=== PATIENT | female | born 1985 | race African-American/Black ===

== ENCOUNTER 2016-12-09 20:17 | Emergency (ER) | payer SELFPAY | END 2016-12-09 20:48 | disposition left against medical advice (07) | LOC: ER 20:17 | DX: Z53.21 Procedure and treatment not carried out due to patient leaving prior to being seen by health care provider (principal) ==

== ENCOUNTER 2017-01-02 11:03 | Emergency (ER) | payer SELFPAY ==
[2017-01-02] MEDS ORDERED: PHENAZOPYRIDINE HCL 200 MG TABLET PO ONE (12:08)
--- NOTE | 2017-01-02 12:08 | ER Document Report ---
ED GI/ - General Mode of Arrival: Ambulatory Information source: Patient TRAVEL OUTSIDE OF THE [place] IN LAST 30 DAYS: No - HPI Patient complains to provider of: Abdominal pain, Dysuria, Vaginal discharge, Other - dysuria Onset: This morning Location: Suprapubic Associated symptoms: Other - see above - General Chief Complaint: Pain With Urination Stated Complaint: ABDOMINAL PAIN,FREQUENT URINATION Time Seen by Provider: 01/02/17 12:03 Notes: 31 year old female with history of asthma presents to the ED complaining of urinary frequency, suprapubic abdominal pain, and dysuria that started today. Patient denies fever, nausea, and vomiting. Patient states that she has chronic vaginal discharge, but no change in it recently. Patient has taken Motrin and Tylenol for pain. (RADHA MORALES) - Related Data Allergies/Adverse Reactions: No Known Allergies Allergy (Verified 01/02/17 11:07) Home Medications: Current Home Medications Albuterol Sulfate [Proair HFA] 1 - 2 puff IH Q4 PRN 01/02/17 [History] Dextroamphetamine/Amphetamine [Adderall XR 20 mg Capsule] 1 cap.sr PO DAILY 03/09 [History] Paliperidone [Invega 3 Mg Tab.Er] 3 mg PO DAILY 01/02/17 [History] Past Medical History - General Information source: Patient - Social History Smoking Status: Current Every Day Smoker Chew tobacco use (# tins/day): No Frequency of alcohol use: Social Drug Abuse: None Family History: Reviewed & Not Pertinent Patient has suicidal ideation: No - Past Medical History Cardiac Medical History: Denies: Hx Coronary Artery Disease, Hx Heart Attack, Hx Hypertension Pulmonary Medical History: Reports: Hx Asthma Denies: Hx Bronchitis, Hx COPD, Hx Pneumonia Neurological Medical History: Denies: Hx Cerebrovascular Accident, Hx Seizures Renal/ Medical History: Denies: Hx Peritoneal Dialysis Musculoskeltal Medical History: Denies Hx Arthritis Past Surgical History: Reports: Hx Tubal Ligation. Denies: Hx Pacemaker - Immunizations Hx Diphtheria, Pertussis, Tetanus Vaccination: Yes Hx Pneumococcal Vaccination: 01/08/12 Review of Systems - Review of Systems Constitutional: No symptoms reported. denies: Fever EENT: No symptoms reported Cardiovascular: No symptoms reported Respiratory: No symptoms reported Gastrointestinal: See HPI, Abdominal pain - suprapubic. denies: Nausea, Vomiting Genitourinary: See HPI, Dysuria, Frequency Female Genitourinary: See HPI, Vaginal discharge Musculoskeletal: No symptoms reported Skin: No symptoms reported Hematologic/Lymphatic: No symptoms reported Neurological/Psychological: No symptoms reported -: Yes All other systems reviewed and negative Physical Exam - General General appearance: Alert, Other - appears uncomfortable In distress: None - HEENT Head: Normocephalic, Atraumatic Eyes: Normal Extraocular movements intact: Yes Pupils: PERRL - Respiratory Respiratory status: No respiratory distress Breath sounds: Rhonchi - Rhonchi which clears with cough to the right lung. No : Wheezing - Cardiovascular Rhythm: Regular Heart sounds: Normal auscultation - Abdominal Inspection: Normal Distension: No distension Tenderness: Nontender - Extremities General upper extremity: Normal inspection, Normal ROM General lower extremity: Normal inspection, Normal ROM - Neurological Neuro grossly intact: Yes Cognition: Normal Orientation: AAOx4 Cord Coma Scale Eye Opening: Spontaneous Cord Coma Scale Verbal: Oriented Cord Coma Scale Motor: Obeys Commands Gene Coma Scale Total: 15 Speech: Normal - Psychological Associated symptoms: Normal affect, Normal mood - Skin Skin Temperature: Warm Skin Moisture: Dry Skin Color: Normal - Vital signs Vitals: Temp Pulse Resp BP Pulse Ox 98.4 F 80 16 140/89 H 98 01/02/17 11:07 01/02/17 11:07 01/02/17 11:07 01/02/17 11:07 01/02/17 11:07 Course - Re-evaluation Re-evalutation: 01/02/17 13:04 Urinalysis shows UTI with hematuria, no fevers, treat with Keflex and Pyridium, discharged home. (MARLEEN HERNANDEZ) - Vital Signs Vital signs: Temp Pulse Resp BP Pulse Ox 98 F 72 16 138/86 H 100 01/02/17 13:10 01/02/17 13:10 01/02/17 13:10 01/02/17 13:10 01/02/17 13:10 - Laboratory Laboratory results interpreted by me: 01/02/17 11:10 Urine Protein >=500 H Urine Ketones TRACE H Urine Blood SMALL H Urine Urobilinogen 2.0 H Ur Leukocyte Esterase LARGE H Discharge - Discharge Clinical Impression: UTI (urinary tract infection) Qualifiers: Urinary tract infection type: acute cystitis Hematuria presence: with hematuria Qualified Code(s): N30.01 - Acute cystitis with hematuria Hypertension Qualifiers: Hypertension type: essential hypertension Qualified Code(s): I10 - Essential ( primary) hypertension Condition: Stable Disposition: HOME, SELF-CARE Instructions: Urinary Tract Infection ([facility]) Additional Instructions: You should start having relief of your pain within the next 2 hours from the Pyridium, you may take Azo as directed [id number] on the box. Feel free to get the generic version if it is cheaper. Please take the Keflex as directed until it is gone. You are not . Return to the emergency department for new or concerning symptoms or if your symptoms do not improve within the next 24 hours. Prescriptions: Cephalexin Monohydrate [Keflex 500 mg Capsule] 500 mg PO Q6H #20 capsule Forms: Return to Work Scribe Attestation: 01/02/17 14:52 I personally performed the services described in the documentation, reviewed and edited the documentation which was dictated to the scribe in my presence, and it accurately records my words and actions. (MARLEEN HERNANDEZ) Scribe Documentation - Scribe Written by Jackeline:: Andreea Avendano, 01/02/2017 1411 acting as scribe for :: Nisa
[2017-01-02 12:28] LABS: APPEARANCE,URINE CLOUDY; BILIRUBIN,URINE NEGATIVE (NEGATIVE); GLUCOSE, URINE NEGATIVE (NEGATIVE); KETONES,URINE TRACE mg/dL (NEGATIVE); LEUKOCYTE ESTERASE,URINE LARGE (NEGATIVE); NITRITE,URINE NEGATIVE (NEGATIVE); PROTEIN,URINE >=500 mg/dL (NEGATIVE); URINE SPECIFIC GRAVITY 1.035
[2017-01-02] MEDS ORDERED: CEPHALEXIN 500 MG CAPSULE PO ONE (12:51)
[2017-01-02 13:14] VITALS: BP 138/86
== END 2017-01-02 13:10 | disposition home or self-care (01) ==
LOC: ER 11:03
DX: N30.01 Acute cystitis with hematuria (principal); I10 Essential (primary) hypertension; N89.8 Other specified noninflammatory disorders of vagina; R35.0 Frequency of micturition; R10.30 Lower abdominal pain, unspecified; F17.200 Nicotine dependence, unspecified, uncomplicated; J45.909 Unspecified asthma, uncomplicated; Z98.51 Tubal ligation status
CPT/HCPCS: 99284; 87086; 81025; 81001; J3490

== ENCOUNTER 2017-01-10 11:28 | Emergency (ER) | payer SELFPAY ==
--- NOTE | 2017-01-10 11:39 | ER Document Report ---
HPI - HPI Onset: Other - early december Onset/Duration: Persistent Pain Level: 3 Context: 31-year-old female complaining of dysuria and suprapubic discomfort since early December. She was treated in the emergency department for urinary tract infection with cephalexin which did not help she had 5 days of Macrobid at home which did not relieve the symptoms either. She had intercourse 1 month ago that was nonpainful and no condom. She is a history of bacterial vaginosis only but it usually does not cause pelvic discomfort, she had gonorrhea and Chlamydia treated 9 years ago. No fever. Lateral tubal ligation 2011. Associated Symptoms: None Exacerbated by: Denies Relieved by: Denies Similar symptoms previously: No Recently seen / treated by doctor: No - ROS ROS below otherwise negative: Yes Systems Reviewed and Negative: Yes All other systems reviewed and negative - REPRODUCTIVE Reproductive: DENIES: : - DERM Skin Color: Normal, [place] Past Medical History - General Information source: Patient - Social History Smoking Status: Current Every Day Smoker Frequency of alcohol use: None Drug Abuse: None Lives with: Family Family History: Reviewed & Not Pertinent Patient has suicidal ideation: No Patient has homicidal ideation: No Pulmonary Medical History: Reports: Hx Asthma Renal/ Medical History: Denies: Hx Peritoneal Dialysis Past Surgical History: Reports: Hx Tubal Ligation - Immunizations Hx Diphtheria, Pertussis, Tetanus Vaccination: Yes Hx Pneumococcal Vaccination: 01/08/12 Vertical Provider Document - CONSTITUTIONAL Agree With Documented VS: Yes Exam Limitations: No Limitations General Appearance: No Apparent Distress - INFECTION CONTROL TRAVEL OUTSIDE OF THE [place] IN LAST 30 DAYS: No - HEENT HEENT: Normocephalic - NECK Neck: Supple - RESPIRATORY Respiratory: Breath Sounds Normal, No Respiratory Distress O2 Sat by Pulse Oximetry: 98 - CARDIOVASCULAR Cardiovascular: Regular Rate, Regular Rhythm - GI/ABDOMEN Gastrointestinal: Abdomen Soft, Abdomen Non-Tender, No Organomegaly - REPRODUCTIVE Female Genitalia: Normal Inspection. negative: CMT, Adnexal Pain-Right, Adnexal Pain-Left Notes: urethra normal, old blood menses in vault - BACK Back: Normal Inspection. negative: CVA Tenderness-Right, CVA Tenderness-Left - MUSCULOSKELETAL/EXTREMETIES Musculoskeletal/Extremeties: MAEW, FROM - NEURO Level of Consciousness: Awake, Alert - DERM Integumentary: Warm, Dry, No Rash Course - Re-evaluation Re-evalutation: 01/10/17 16:46 Wet prep was neagative. Pt chose to tx for possible gc or chlamydia prior to leaving the ER, referral to obgyn. gc and chlamydia are negative, will call in [facility] [phone], will call in more macrobid 1 po bid #14 (which pt refers to the Keflex) , pyridium 200mg tid #20 , no refill. pending the new urine culture, pt has the urethral pain, on physical exam the urethra was not inflamed or prolapsed - Vital Signs Vital signs: Temp Pulse Resp BP Pulse Ox 98.5 F 86 20 125/78 98 01/10/17 11:30 01/10/17 11:30 01/10/17 11:30 01/10/17 11:30 01/10/17 11:30 Discharge - Discharge Clinical Impression: dental asbcess, pelvic pain Condition: Good Disposition: HOME, SELF-CARE Instructions: Anti-Inflammatory Medication ([facility]), Azithromycin ([facility]), Dentist, Dental Infection or Abscess ([facility]), Pelvic Pain ([facility]), Penicillin V K ([facility]), Rocephin ([facility]) Additional Instructions: see the dentist call me in 2 hours for the std culture results [phone] see obgyn doctor for persistant pelvic pain Please complete the patient satisfaction survey if you get one, and return it.. If you do not receive a survey, then you can go to the [facility] website, [email or web address] and place your comments about your very good care. Thank you very much. It was a pleasure being your medical provider today. Prescriptions: Ibuprofen [Motrin 800 mg Tablet] 800 mg PO Q8HP PRN #30 tab PRN Reason: Penicillin V Potassium [Penicillin Vk 500 mg Tablet] 500 mg PO QID #40 tablet Forms: Return to Work Referrals: TERESA JIANG MD [EMERITUS] - Follow up as needed WILLI PENA MD [ACTIVE STAFF] - Follow up as needed
[2017-01-10] MEDS ORDERED: PENICILLIN V POTASSIUM 500 MG TABLET PO ONE (11:53)
[2017-01-10 12:11] LABS: APPEARANCE,URINE SLIGHTLY-CLOUDY; BILIRUBIN,URINE NEGATIVE (NEGATIVE); GLUCOSE, URINE NEGATIVE (NEGATIVE); KETONES,URINE NEGATIVE (NEGATIVE); LEUKOCYTE ESTERASE,URINE MODERATE (NEGATIVE); NITRITE,URINE NEGATIVE (NEGATIVE); PROTEIN,URINE 30 mg/dL (NEGATIVE); URINE SPECIFIC GRAVITY 1.026; UROBILINOGEN,URINE NEGATIVE mg/dL (<2.0)
[2017-01-10] MEDS ORDERED: CEFTRIAXONE INJ 250 MG VIAL IM ONE (13:22)
[2017-01-10] MEDS ORDERED: LIDOCAINE 1% INJ-PF (10 MG/ML) 30 ML SDV INFIL ONE (13:24)
[2017-01-10] MEDS ORDERED: AZITHROMYCIN 250 MG TABLET PO ONE (13:24)
[2017-01-10 13:38] LABS: CHLAM PCR NOT DETECTED (NOT DETECT)
[2017-01-10 13:46] VITALS: BP 124/76
== END 2017-01-10 13:46 | disposition home or self-care (01) ==
LOC: ER 11:28
DX: K04.7 Periapical abscess without sinus (principal); R10.2 Pelvic and perineal pain; R30.0 Dysuria; F17.200 Nicotine dependence, unspecified, uncomplicated; Z98.51 Tubal ligation status
CPT/HCPCS: 99283; 96372; 87086; 87210; 81025; 81001; 87491; 87591; J3490; J0696

== ENCOUNTER 2018-05-25 15:58 | Emergency (ER) | payer SELFPAY ==
--- NOTE | 2018-05-25 17:14 | ER Document Report ---
ED General - General Chief Complaint: Pelvic Pain Stated Complaint: PELVIC PAIN Time Seen by Provider: 05/25/18 17:10 Primary Care Provider: [facility] [Provider Group] - Follow up in 3-5 days Mode of Arrival: Ambulatory Information source: Patient Notes: 32-year-old female with asthma presents with complaint of 1 week of pelvic and low back pain. She describes the pain is intermittent, cramping and sharp. She also states that she has had 1 day of greenish vaginal discharge. Her last menstrual period was May 13, 2018 and states she is not concerned for as she has had a tubal ligation. Patient is sexually active with one partner but does not use detection. She does not have any suspicion that she has been exposed to an STD. She has had prior similar symptoms and was diagnosed with a urinary tract infection. TRAVEL OUTSIDE OF THE [place] IN LAST 30 DAYS: No - HPI Onset: Last week Onset/Duration: Intermittent Quality of pain: Cramping, Sharp Severity: Mild Pain Level: 1 Associated symptoms: denies: Chest pain, Diarrhea, Fever, Headache, Nausea, Vomiting, Shortness of breath, Sweating Exacerbated by: Denies Relieved by: Denies Similar symptoms previously: No Recently seen / treated by doctor: No - Related Data Allergies/Adverse Reactions: No Known Allergies Allergy (Verified 01/10/17 12:04) Past Medical History - General Information source: Patient, [facility] Records - Social History Smoking Status: Never Smoker Frequency of alcohol use: None Drug Abuse: None Lives with: Spouse/Significant other Family History: Reviewed & Not Pertinent - Past Medical History Cardiac Medical History: Denies: Hx Coronary Artery Disease, Hx Heart Attack, Hx Hypertension Pulmonary Medical History: Reports: Hx Asthma Denies: Hx Bronchitis, Hx COPD, Hx Pneumonia Neurological Medical History: Denies: Hx Cerebrovascular Accident, Hx Seizures Renal/ Medical History: Denies: Hx Peritoneal Dialysis Musculoskeletal Medical History: Denies Hx Arthritis Past Surgical History: Reports: Hx Tubal Ligation. Denies: Hx Pacemaker - Immunizations Hx Diphtheria, Pertussis, Tetanus Vaccination: Yes Hx Pneumococcal Vaccination: 01/08/12 Review of Systems - Review of Systems Notes: REVIEW OF SYSTEMS: CONSTITUTIONAL : Denies fever, chills, or sweats. Denies recent illness. Denies weight loss, recent hospitalizations. EENT: Denies visual changes, eye pain. Denies sore throat, oral lesions, difficulty swallowing. CARDIOVASCULAR: Denies chest pain. Denies palpitations. Denies lower extremity edema. RESPIRATORY: Denies cough. Denies shortness of breath, wheezing. GASTROINTESTINAL: Denies abdominal distention. Denies nausea, vomiting, or diarrhea. Denies blood in vomitus, stools, or per rectum. Denies black, tarry stools. Denies constipation. GENITOURINARY: Denies difficulty urinating, painful urination, frequency, blood in urine, MUSCULOSKELETAL: Denies back or neck pain or stiffness. Denies joint pain or swelling. SKIN: Denies rash, lesions or sores. HEMATOLOGIC : Denies easy bruising or bleeding. LYMPHATIC: Denies swollen glands. NEUROLOGICAL: Denies confusion or altered mental status. Denies loss of consciousness. Denies dizziness or lightheadedness. Denies headache. Denies weakness or paralysis. Denies problems difficulty with ambulation, slurred speech. Denies sensory loss, numbness, or tingling. Denies seizures. PSYCHIATRIC: Denies anxiety or stress. Denies depression, suicidal ideation, or homicidal ideation. Denies visual or auditory hallucinations. Physical Exam - Vital signs Vitals: Temp Pulse Resp BP Pulse Ox 98.8 F 85 16 132/87 H 97 05/25/18 16:17 05/25/18 16:17 05/25/18 16:17 05/25/18 16:17 05/25/18 16:17 - Notes Notes: PHYSICAL EXAMINATION: GENERAL: Well-appearing, well-nourished and in no acute distress. HEAD: Atraumatic, normocephalic. EYES: Pupils equal round and reactive to light, extraocular movements intact, conjunctiva are normal. ENT: Nares patent, oropharynx clear without exudates. Moist mucous membranes. NECK: Normal range of motion, supple without lymphadenopathy LUNGS: Breath sounds clear to auscultation bilaterally and equal. No wheezes rales or rhonchi. HEART: Regular rate and rhythm without murmurs ABDOMEN: Soft, nontender, nondistended abdomen. No guarding, no rebound. No masses appreciated. Female : Pelvic exam; External genitalia unremarkable. Speculum exam with yellow-green discharge. Vaginal wall unremarkable. Os closed. No cervical motion tenderness. No adnexal tenderness or masses appreciated. Swabs obtained for gonorrhea, chlamydia and wet prep. Musculoskeletal: Normal range of motion, no pitting or edema. No cyanosis. NEUROLOGICAL: Cranial nerves grossly intact. Normal speech, normal gait. Normal sensory, motor exams PSYCH: Normal mood, normal affect. SKIN: Warm, Dry, normal turgor, no rashes or lesions noted. Course - Re-evaluation Re-evalutation: 05/25/18 18:51 Laboratory 05/25/18 05/25/18 17:16 17:52 Urine Color YELLOW Urine Appearance CLEAR Urine pH 6.0 Ur Specific [place] 1.019 Urine Protein NEGATIVE Urine Glucose (UA) NEGATIVE Urine Ketones NEGATIVE Urine Blood NEGATIVE Urine Nitrite NEGATIVE Urine Bilirubin NEGATIVE Urine Urobilinogen NEGATIVE Ur Leukocyte Esterase NEGATIVE Urine WBC (Auto) 1 Urine RBC (Auto) 2 Squamous Epi Cells Auto <1 Urine Mucus (Auto) RARE Urine Ascorbic Acid NEGATIVE Epi Cells (Wet Prep) 3+ EPITHELIALS SEEN Trichomonas (Wet Prep) NO TRICHOMONAS SEEN Vaginal WBC 2+ WBCS SEEN Vaginal RBC NO RBCS SEEN Vaginal Yeast NO YEAST SEEN Temp Pulse Resp BP Pulse Ox 98.8 F 85 16 132/87 H 97 05/25/18 16:17 05/25/18 16:17 05/25/18 16:17 05/25/18 16:17 05/25/18 16:17 32-year-old female with asthma presents with complaint of 1 week of pelvic and low back pain. She describes the pain is intermittent, cramping and sharp. She also states that she has had 1 day of greenish vaginal discharge. Her last menstrual period was May 13, 2018 and states she is not concerned for as she has had a tubal ligation. Patient is sexually active with one partner but does not use detection. She does not have any suspicion that she has been exposed to an STD. She has had prior similar symptoms and was diagnosed with a urinary tract infection. No evidence of urinary tract infection, bacterial vaginosis, trichomonas, yeast infection on patient's wet prep and urinalysis. Patient did have a yellow greenish discharge on exam and has opted for prophylactic treatment of gonorrhea and chlamydia. Patient was evaluated and treated as appropriate for the patient's presenting symptoms and complaint, with consideration of any critical or life threatening conditions that may be associated with their obtained history and exam as noted above. All results were discussed with patient and... Patient provided the opportunity to ask questions, and express concerns. Patient was educated on treatments based on their presumed diagnosis as noted above. At this time we will discharge the patient with return precautions and follow-up recommendations. Verbal discharge instructions given a the bedside. Medication warnings reviewed. Patient is in agreement with this plan and has verbalized understanding of return precautions. After careful consideration I feel that that patient can be safely discharged from the emergency department, they were advised to followup with a primary care physician in 2-3 days. Dictation on this chart was performed using voice recognition software and may result in unintended grammatical, spelling, syntax or errors. 05/25/18 19:02 05/26/18 01:14 - Vital Signs Vital signs: Temp Pulse Resp BP Pulse Ox 98.8 F 85 16 132/87 H 97 05/25/18 16:17 05/25/18 16:17 05/25/18 16:17 05/25/18 16:17 05/25/18 16:17 Discharge - Discharge Clinical Impression: Pelvic pain, Vaginal discharge, Elevated blood pressure reading Condition: Good Disposition: HOME, SELF-CARE Instructions: Azithromycin ([facility]), Cephalosporins ([facility]), Pelvic Pain ([facility]) Additional Instructions: Follow up with your [id number] hours for further care or return to the ED IMMEDIATELY if symptoms worsen or you have any concerns. If you cannot afford to follow up with your primary care physician a list of low cost clinics have been provided at the end of your discharge papers as well. Most prescribed medications have multiple side effects. The safest thing to do is when filling your prescription speak to your pharmacist regarding possible interactions with your normal home medications and over the counter medications such as Ibuprofen, Tylenol, Benadryl. If you experience any symptoms that cause you discomfort or concern you should discontinue the medication immediately and return to the emergency room or call your primary care physician. Forms: Elevated Blood Pressure Referrals: [facility] [Provider Group] - Follow up in 3-5 days
[2018-05-25 18:18] LABS: EPITHELIALS (WET MOUNT) 3+ EPITHELIALS SEEN; RBCS (WET MOUNT) NO RBCS SEEN; T.VAGINALIS (WET MOUNT) NO TRICHOMONAS SEEN; WBCS (WET MOUNT) 2+ WBCS SEEN; YEAST (WET MOUNT) NO YEAST SEEN
[2018-05-25 18:25] LABS: APPEARANCE,URINE CLEAR; BILIRUBIN,URINE NEGATIVE (NEGATIVE); COLOR,URINE YELLOW; GLUCOSE, URINE NEGATIVE (NEGATIVE); KETONES,URINE NEGATIVE (NEGATIVE); LEUKOCYTE ESTERASE,URINE NEGATIVE (NEGATIVE); NITRITE,URINE NEGATIVE (NEGATIVE); PROTEIN,URINE NEGATIVE (NEGATIVE); URINE SPECIFIC GRAVITY 1.019; UROBILINOGEN,URINE NEGATIVE mg/dL (<2.0)
[2018-05-25] MEDS ORDERED: NAPROXEN 250 MG TABLET PO ONE (18:47)
[2018-05-25] MEDS ORDERED: CEFTRIAXONE INJ 250 MG VIAL IM ONE (18:52)
[2018-05-25] MEDS ORDERED: ONDANSETRON 4 MG TAB.RAPDIS PO ONE (18:52)
[2018-05-25] MEDS ORDERED: AZITHROMYCIN 1 GM SUSP PACKET PO ONE (18:52)
[2018-05-25 19:45] LABS: CHLAM PCR NOT DETECTED (NOT DETECT); GON PCR NOT DETECTED (NOT DETECT)
[2018-05-26 06:56] VITALS: BP 128/100
== END 2018-05-25 20:10 | disposition home or self-care (01) ==
LOC: ER 15:58
DX: R10.2 Pelvic and perineal pain (principal); N89.8 Other specified noninflammatory disorders of vagina; R03.0 Elevated blood-pressure reading, without diagnosis of hypertension; M54.5 Low back pain; J45.909 Unspecified asthma, uncomplicated
CPT/HCPCS: 99284; 96372; 87210; 81025; 81001; 87491; 87591; S0119; Q0144; J0696; 36415

== ENCOUNTER 2019-03-20 04:47 | Emergency (ER) | payer SELFPAY ==
[2019-03-20 06:10] LABS: A TYPE INFLUENZA AG NEGATIVE (NEGATIVE); B INFLUENZA AG NEGATIVE (NEGATIVE)
--- NOTE | 2019-03-20 06:15 | RADIOLOGY REPORT (SQ) ---
EXAM DESCRIPTION: XR CHEST 2 VIEWS COMPLETED DATE/TME: 03/20/2019 00:00 CLINICAL HISTORY: 33 years, Female, COUGH Comparison: None FINDINGS: No focal lung consolidation. No pleural effusion. No pneumothorax. Cardiac and mediastinal silhouette is unremarkable. No acute osseous abnormality. Soft tissues are unremarkable. IMPRESSION: No acute findings. No focal lung consolidation.
[2019-03-20] MEDS ORDERED: PREDNISONE 20 MG TABLET PO ONE (09:01)
[2019-03-20] MEDS ORDERED: IPRATROPIUM/ALBUTEROL 0.5-2.5 MG/3 ML AMPUL NEB ONE (09:01)
--- NOTE | 2019-03-20 09:07 | ER Document Report ---
HPI - HPI Patient complains to provider of: Cough Time Seen by Provider: 03/20/19 08:54 Onset: Last week Onset/Duration: Persistent Pain Level: 3 Context: 33-year-old female with history of asthma and smoker presents emergency department with complaints of cough for the past week. Reports diarrhea earlier in the past week. None now. Denies fever and vomiting. Reports she has taken multiple [id number] medications without relief of symptoms. She also reports she used her inhaler which did not help. Associated Symptoms: Diarrhea Exacerbated by: Denies Relieved by: Denies Similar symptoms previously: No Recently seen / treated by doctor: No - EENT EENT: REPORTS: Sore Throat - RESPIRATORY Respiratory: REPORTS: Coughing - REPRODUCTIVE Reproductive: DENIES: : Past Medical History - General Information source: Patient Last Menstrual Period: Last month denies - Social History Smoking Status: Current Every Day Smoker Cigarette use (# per day): Yes Frequency of alcohol use: Social Drug Abuse: None Lives with: Family Family History: Reviewed & Not Pertinent Patient has suicidal ideation: No Patient has homicidal ideation: No - Past Medical History Cardiac Medical History: Denies: Hx Coronary Artery Disease, Hx Heart Attack, Hx Hypertension Pulmonary Medical History: Reports: Hx Asthma Denies: Hx Bronchitis, Hx COPD, Hx Pneumonia Neurological Medical History: Denies: Hx Cerebrovascular Accident, Hx Seizures Renal/ Medical History: Denies: Hx Peritoneal Dialysis Musculoskeletal Medical History: Denies Hx Arthritis Past Surgical History: Reports: Hx Tubal Ligation. Denies: Hx Pacemaker - Immunizations Hx Diphtheria, Pertussis, Tetanus Vaccination: Yes Hx Pneumococcal Vaccination: 01/08/12 Vertical Provider Document - CONSTITUTIONAL Agree With Documented VS: Yes Exam Limitations: No Limitations General Appearance: WD/WN, No Apparent Distress - Nontoxic looking - INFECTION CONTROL TRAVEL OUTSIDE OF THE [place] IN LAST 30 DAYS: No - HEENT HEENT: Atraumatic, Normal ENT Exam, Normocephalic, PERRLA. negative: Conjuctival Injection, Pharyngeal Erythema, Tympanic Membrane Red - Soft earwax noted - NECK Neck: Normal Inspection, Supple. negative: Lymphadenopathy-Left, Lymphadenopathy-Right - RESPIRATORY Respiratory: No Respiratory Distress, Wheezing - CARDIOVASCULAR Cardiovascular: Regular Rate, Regular Rhythm - GI/ABDOMEN Gastrointestinal: Abdomen Soft, Abdomen Non-Tender - MUSCULOSKELETAL/EXTREMETIES Musculoskeletal/Extremeties: MAEW, FROM - NEURO Level of Consciousness: Awake, Alert, Appropriate Motor/Sensory: No Motor Deficit - DERM Integumentary: Warm, Dry Course - Re-evaluation Re-evalutation: 03/20/19 09:01 This 33-year-old female with history of asthma presents emergency department with complaints of cough for the past week. Denies fever vomiting reports some diarrhea earlier in the week. Flu test negative chest x-ray negative. Patient does have a slight wheeze will be treated with DuoNeb and steroids. She reports she has an inhaler at home. 03/20/19 10:55 Patient received a neb treatment. Sounds much better no wheeze. She was instructed on steroid. Instructed to quit smoking use her inhaler as prescribed. She verbalized understanding to all instructions. - Vital Signs Vital signs: Temp Pulse Resp BP Pulse Ox 98.7 F 107 H 20 129/82 H 99 03/20/19 05:24 03/20/19 05:24 03/20/19 05:24 03/20/19 05:24 03/20/19 05:24 Discharge - Discharge Clinical Impression: Cough, Wheeze Condition: Stable Disposition: HOME, SELF-CARE Instructions: Steroid Medication Additional Instructions: *You have been evaluated for a cough, wheeze *Take medication as prescribed *Increase fluids Quit smoking *Monitor your temperature, take Tylenol as indicated *Follow up with a primary care provider within 1 week for recheck *Return to ED for increasing cough, worsening condition, changes, needs, difficulty breathing Prescriptions: Prednisone [Deltasone 10 mg Tablet] 10 mg PO ASDIR PRN #15 tablet PRN Reason: Forms: Smoking Cessation Education
[2019-03-20 09:25] VITALS: BP 112/72
== END 2019-03-20 09:57 | disposition home or self-care (01) ==
LOC: ER 04:47
DX: R05 Cough (principal); J45.909 Unspecified asthma, uncomplicated; R19.7 Diarrhea, unspecified; J02.9 Acute pharyngitis, unspecified; F17.210 Nicotine dependence, cigarettes, uncomplicated
CPT/HCPCS: 94640; 99283; 87804; 71046; J7512; J7620

== ENCOUNTER 2019-09-07 11:57 | Emergency (ER) | payer SELFPAY ==
--- NOTE | 2019-09-07 13:23 | ER Document Report ---
HPI - HPI Time Seen by Provider: 09/07/19 13:10 Pain Level: 3 Notes: 34-year-old female presents emergency room with complaints of frequency, urgency, pain with urination x4 days. Patient has a history of UTI. Last menstrual cycle September 27, 2019. Patient states that she is taken a couple doses of Bactrim at home because she frequently gets UTIs and wanted to get ahead of it. Pain is 3 out of 10, burning. Eating and drink without any issues. Denies any vaginal bleeding or pelvic pain. Denies fevers, chills, chest pain,palpitations, shortness of breath, dyspnea, nausea, vomiting, diarrhea, abdominal pain, hematuria,blurred vision, double vision, loss of vision, speech changes, LH, dizziness, syncope, headaches, wheezing, ST, URI, neck pain, weakness, bowel or bladder dysfunction, saddle anesthesia, numbness or tingling in bilateral upper or lower extremities equally, muscle paralysis, weakness in bilateral upper or lower extremities equally or rash. MEDICATIONS: I agree with the patient medications as charted by the RN. ALLERGIES: I agree with the allergies as charted by the RN. PAST MEDICAL HISTORY/PAST SURGICAL HISTORY: Reviewed and agree as charted by RN. SOCIAL HISTORY: Reviewed and agree as charted by RN. FAMILY HISTORY: No significant familial comorbid conditions directly related to patient complaint EXAM: Reviewed vital signs as charted by RN. REVIEW OF SYSTEMS:reviewed vital signs by RN CONSTITUTIONAL : Denies fever, chills, or sweats. Denies recent illness. EENT: Denies eye, ear, throat, or mouth pain or symptoms. Denies nasal or sinus congestion or discharge. Denies throat, tongue, or mouth swelling or difficulty swallowing. CARDIOVASCULAR: Denies chest pain. Denies palpitations or racing or irregular heart beat. Denies ankle edema. RESPIRATORY: Denies cough, cold, or chest congestion. Denies shortness of breath, difficulty breathing, or wheezing. GASTROINTESTINAL: Denies abdominal pain or distention. Denies nausea, vomiting, or diarrhea. Denies blood in vomitus, stools, or per rectum. Denies black, tarry stools. Denies constipation. GENITOURINARY: Reports difficulty urinating, painful urination, burning, frequency. Denies blood in urine, or discharge. FEMALE GENITOURINARY: Denies vaginal bleeding, heavy or abnormal periods, irregular periods. Denies vaginal discharge or odor. MUSCULOSKELETAL: Denies back or neck pain or stiffness. Denies joint pain or swelling. SKIN: Denies rash, lesions or sores. HEMATOLOGIC : Denies easy bruising or bleeding. LYMPHATIC: Denies swollen, enlarged glands. NEUROLOGICAL: Denies confusion or altered mental status. Denies passing out or loss of consciousness. Denies dizziness or lightheadedness. Denies headache. Denies weakness or paralysis or loss of use of either side. Denies problems with gait or speech. Denies sensory loss, numbness, or tingling. Denies seizures. PSYCHIATRIC: Denies anxiety or stress. Denies depression, suicidal ideation, or homicidal ideation. ALL OTHER SYSTEMS REVIEWED AND NEGATIVE. PHYSICAL EXAMINATION: GENERAL: Well-appearing, well-nourished and in no acute distress. HEAD: Atraumatic, normocephalic. EYES: Pupils equal round and reactive to light, extraocular movements intact, conjunctiva are normal. ENT: Nares patent, oropharynx clear without exudates. Moist mucous membranes. NECK: Normal range of motion, supple without lymphadenopathy LUNGS: Breath sounds clear to auscultation bilaterally and equal. No wheezes rales or rhonchi. HEART: Regular rate and rhythm without murmurs ABDOMEN: Soft, nontender, nondistended abdomen. Pubic tenderness appreciated no guarding, no rebound. No masses appreciated. No CVA tenderness appreciated Female : deferred Musculoskeletal: Normal range of motion, no pitting or edema. No cyanosis. NEUROLOGICAL: Cranial nerves grossly intact. Normal speech, normal gait. Normal sensory, motor exams PSYCH: Normal mood, normal affect. SKIN: Warm, Dry, normal turgor, no rashes or lesions noted. Dictation was performed using [employer] voice recognition software - URINARY Urinary: REPORTS: Dysuria, Urgency, Frequency - REPRODUCTIVE Reproductive: DENIES: : Past Medical History - General Information source: Patient - Social History Smoking Status: Current Every Day Smoker Frequency of alcohol use: Occasional Drug Abuse: None Family History: Reviewed & Not Pertinent Patient has homicidal ideation: No - Past Medical History Cardiac Medical History: Denies: Hx Coronary Artery Disease, Hx Heart Attack, Hx Hypertension Pulmonary Medical History: Reports: Hx Asthma Denies: Hx Bronchitis, Hx COPD, Hx Pneumonia Neurological Medical History: Denies: Hx Cerebrovascular Accident, Hx Seizures Renal/ Medical History: Denies: Hx Peritoneal Dialysis Musculoskeletal Medical History: Denies Hx Arthritis Past Surgical History: Reports: Hx Tubal Ligation. Denies: Hx Pacemaker - Immunizations Hx Diphtheria, Pertussis, Tetanus Vaccination: Yes Hx Pneumococcal Vaccination: 01/08/12 Vertical Provider Document - CONSTITUTIONAL Agree With Documented VS: Yes Exam Limitations: No Limitations General Appearance: WD/WN - INFECTION CONTROL TRAVEL OUTSIDE OF THE [place] IN LAST 30 DAYS: No Course - Re-evaluation Re-evalutation: 09/07/19 13:21 Afebrile vital stable no distress. Nurses notes reviewed. Urine also shows moderate leukesterase, nitrates negative. Patient requested a gram of Rocephin IM due to having multiple episodes of antibiotic resistant UTIs in the past and states that only "Rocephin shots have worked". Will start on outpatient antibiotic therapy, urine culture pending. After performing a Medical Screening Examination, I estimate there is LOW risk for ACUTE APPENDICITIS, BOWEL OBSTRUCTION, ACUTE CHOLECYSTITIS, PERFORATED DIVERTICULITIS, INCARCERATED HERNIA, PANCREATITIS, PELVIC INFLAMMATORY DISEASE, PERFORATED ULCER, ECTOPIC , or TUBO-OVARIAN ABSCESS, thus I consider the discharge disposition reasonable. Also, there is no evidence or peritonitis, sepsis, or toxicity. I have reevaluated this patient multiple times and no significant life threatening changes are noted. The patient and I have discussed the diagnosis and risks, and we agree with discharging home with close follow-up with the understanding that symptoms and presentations can change. We also discussed returning to the Emergency Department immediately if new or worsening symptoms occur. We have discussed the symptoms which are most concerning (e.g., bloody stool, fever, changing or worsening pain, vomiting) that necessitate immediate return. 09/07/19 13:47 - Vital Signs Vital signs: Temp Pulse Resp BP Pulse Ox 98.9 F 102 H 16 131/86 H 98 09/07/19 13:08 09/07/19 13:06 09/07/19 13:06 09/07/19 13:06 09/07/19 13:06 Discharge - Discharge Clinical Impression: UTI (urinary tract infection) Condition: Stable Disposition: HOME, SELF-CARE Instructions: Urinary Tract Infection ([facility]), Trimethoprim-Sulfa ([facility]) Additional Instructions: You have a UTI from your urinalysis. Urine culture is pending. You were given 1 g of Rocephin as well as outpatient antibiotics to take with food as directed. please increase oral hydration. Please follow-up with your primary care provider in the next 24 to 48 hours. Return immediately for any new or worsening symptoms. Follow up with primary care provider, call tomorrow to make followup appointment. Prescriptions: Sulfamethoxazole/Trimethoprim [Bactrim Ds Tablet] 1 each PO BID #20 tablet Forms: Return to Work Referrals: AFSANEH MORALES MD [ACTIVE STAFF] - Follow up as needed
[2019-09-07 13:32] LABS: APPEARANCE,URINE SLIGHTLY-CLOUDY; BILIRUBIN,URINE NEGATIVE (NEGATIVE); COLOR,URINE YELLOW; GLUCOSE, URINE NEGATIVE (NEGATIVE); KETONES,URINE NEGATIVE (NEGATIVE); LEUKOCYTE ESTERASE,URINE MODERATE (NEGATIVE); NITRITE,URINE NEGATIVE (NEGATIVE); PROTEIN,URINE NEGATIVE (NEGATIVE); URINE SPECIFIC GRAVITY 1.017; UROBILINOGEN,URINE NEGATIVE mg/dL (<2.0)
[2019-09-07] MEDS ORDERED: LIDOCAINE 1% INJ-PF (10 MG/ML) 30 ML SDV INJ ONE ×2 (13:42→13:52)
[2019-09-07] MEDS ORDERED: CEFTRIAXONE INJ 1000 MG VIAL IM ONE (13:42)
[2019-09-07 14:01] VITALS: BP 131/81
== END 2019-09-07 14:13 | disposition home or self-care (01) ==
LOC: ER 11:57
DX: N39.0 Urinary tract infection, site not specified (principal); R30.0 Dysuria; R35.0 Frequency of micturition; R39.15 Urgency of urination; R30.9 Painful micturition, unspecified; F17.200 Nicotine dependence, unspecified, uncomplicated; J45.909 Unspecified asthma, uncomplicated
CPT/HCPCS: 99283; 96372; 36415; 87086; 81025; 87088; 81001; J3490; J0696; 87186